=== PATIENT | female | born 1970 | race Caucasian/White ===

== ENCOUNTER 2017-12-26 14:34 | Outpatient (CLI) | payer BC, OTHER ==
[~2017-12-26 14:34] MED LIST: Gadobenate Dimeglumine 529 MG/1 ML (20ML VIAL) ONE
--- NOTE | 2017-12-26 17:53 | MRI ---
BRAIN MRI WITH AND WITHOUT CONTRAST: HISTORY: Syncopal episode one week ago. COMPARISON: None. TECHNIQUE: A brain MRI is performed with and without intravenous Gadolinium administration. Multisequential, mu ltiplanar imaging is performed. FINDINGS: No hemorrhage on the axial gradient echo sequence. No parenchymal mass, mass effect, or midline shift. Brain volume is age appropriate. Cortical brantley white matter differentiation is preserved. The ventricles and sulci are patent and symmetric. The central arterial flow voids are maintained. Absent restricted diffusion. No pathologic enhancement of the brain parenchyma. Minimal mucus retention cyst in the left ethmoid air cells. IMPRESSION: Unremarkable pre and post contrast brain MRI. POS: [facility]
== END 2017-12-26 14:35 | disposition home or self-care (01) ==
LOC: TBSIIMAG 14:34
PROVIDERS: ATTEND Psychiatry & Neurology Neurology
DX: R56.9 Unspecified convulsions (principal)
CPT/HCPCS: 70553; A9579

== ENCOUNTER 2019-11-02 08:19 | Outpatient (CLI) | payer BC ==
--- NOTE | 2019-11-02 09:37 | MRI ---
MRI lumbar spine noncontrast: HISTORY: Lumbar radiculopathy. Low back pain since August 2019. Patient felt a pop in her lower back. COMPARISON: None FINDINGS: There is leftward curvature of the distal thoracic and upper lumbar spine. 5 lumbar type vertebra. Th ere is intrinsic T1 hypointensity with associated T2 and STIR hyperintensity along the left aspect of the T12 vertebral body, incompletely evaluated. Small focus of intraosseous edema suspected. Sima r interrogation with thoracic spine MRI recommended. There are type I and type II Modic changes at the L2-L3 level. There are type I Modic changes at the L4-L5 level. No significant loss of vertebral body height. Small remote Schmorl's node along the inferior endplate of L2, inferior endplate of L4 are suspected. Acute Schmorl's node along the superior endplate of L5 is identified. No MR evidence of ligamentous injury of the STIR sequence. Appropriate signal intensity of the visualized paraspinal muscles and solid organs. Conus medullaris terminates at the superior aspect of L1. T12-L1:Adequate disc hydration. No significant central canal stenosis. Moderate bilateral neural fora steve narrowing. L1-L2:Adequate disc hydration. No significant posterior disc abnormality. No significant central thomas l stenosis. Neural foramina are patent bilaterally. L2-L3:Desiccation with moderate loss of disc space height. Broad-based disc bulge with mild central c anal stenosis. Mild facet hypertrophy with a trace amount of fluid in both facet joints. Moderate right and mild left neural foraminal narrowing. L3-L4:Desiccation with mild loss of disc space height. Broad-based disc bulge, ligamentum flavum thic [place] and facet hypertrophy result in mild central canal stenosis. Trace fluid in both facet joints. Mild bilateral neural foraminal narrowing. L4-L5:Desiccation with mild loss of disc space height. Broad-based disc bulge, ligamentum flavum thic [place] and facet hypertrophy result in mild central canal stenosis. Partial obscuration traversing left L5 nerve root secondary to disc material and posterior element hypertrophy. Small amount of flui d in the left and right facet joints. Right neural foramen is patent. Mild to moderate left neural foraminal narrowing. L5-S1:Adequate disc hydration. No significant posterior disc abnormality. No significant central thomas l stenosis. Small amount of fluid in both facet joints. Patent bilateral neural foraminal IMPRESSION: 1. Multilevel degenerative changes of the lumbar spine as described above. 2. Type I and type II Modic changes at L2-L3. Predominantly type I Modic changes at L4-L5. 3. Indeterminate signal intensity at T12, incompletely evaluated. Dedicated thoracic spine MRI is rec ommended. Transcribed Date/Time: 11/02/2019 11:49 AM
--- NOTE | 2019-11-02 09:42 | RAD ---
LUMBAR SPINE 4 VIEWS: Date: 11/02/2019 INDICATION: Acute lumbar radiculopathy. COMPARISON: No radiographic comparisons are available. FINDINGS: There are five lumbar-type vertebra. There is levoscoliosis centered at L1-2. Rotatory component is seen involving the scoliosis. Spinal alignment on the lateral projection appears within normal limits . No acute fracture is evident. There is mild multilevel spondylosis. No abnormal translational motio n is noted. IMPRESSION: Mild lumbar spondylosis with prominent levoscoliosis of the upper lumbar spine. No definite abnormal translational motion demonstrated. POS: [facility]
== END 2019-11-02 08:20 | disposition home or self-care (01) ==
LOC: TBSIIMAG 08:19
PROVIDERS: ATTEND Anesthesiology Pain Medicine
DX: M41.9 Scoliosis, unspecified (principal); M47.26 Other spondylosis with radiculopathy, lumbar region; M51.16 Intervertebral disc disorders with radiculopathy, lumbar region
CPT/HCPCS: 72100; 72148

== ENCOUNTER 2021-10-22 12:31 | Outpatient (CLI) | payer BC | END 2021-10-22 12:32 | disposition home or self-care (01) | LOC: TBSIIMAG 12:31 | PROVIDERS: ATTEND Anesthesiology Pain Medicine | DX: M47.816 Spondylosis without myelopathy or radiculopathy, lumbar region (principal); M50.30 Other cervical disc degeneration, unspecified cervical region; M51.86 Other intervertebral disc disorders, lumbar region; M48.061 Spinal stenosis, lumbar region without neurogenic claudication; M25.78 Osteophyte, vertebrae | CPT/HCPCS: 72148 ==

== ENCOUNTER 2023-01-05 13:45 | Outpatient (CLI) | payer BC | END 2023-01-05 13:46 | disposition home or self-care (01) | LOC: BICRAD 13:45 | PROVIDERS: ATTEND Nurse Practitioner Family | DX: M47.814 Spondylosis without myelopathy or radiculopathy, thoracic region (principal); M41.25 Other idiopathic scoliosis, thoracolumbar region; M47.816 Spondylosis without myelopathy or radiculopathy, lumbar region | CPT/HCPCS: 72072; 72100 ==